=== PATIENT | female | born 1945 | race Caucasian/White ===

== ENCOUNTER 2018-12-03 10:31 | Emergency (ER) | payer OTHER ==
[~2018-12-03] VITALS: Ht 152.4 cm; Wt 62.6 kg
[~2018-12-03 10:31] MED LIST: AMBIEN10 MG PO; CIPRO500 MG PO; DICY20TA PO; FOSAMAX70 MG PO; LEVAQUIN750 MG PO; PROTONIX40 MG PO; PYRIDIUM DS200 MG PO; SYNTHROID137 MCG PO; VASOTEC10 MG NGT; ZANTAC300 MG PO
[2018-12-03] MEDS ORDERED: HYDROCHLOROTHIA25 MG (10:56)
== END 2018-12-03 13:41 | disposition home or self-care (01) ==
LOC: ER 10:31
DX: B34.9 Viral infection, unspecified (principal)

== ENCOUNTER 2019-03-26 16:52 | Emergency (ER) | payer OTHER ==
[~2019-03-26] VITALS: Ht 160 cm; Wt 63.5 kg
[~2019-03-26 16:52] MED LIST changes: +HYDROCHLOROTHIA25 MG
== END 2019-03-26 21:43 | disposition home or self-care (01) ==
LOC: ER 16:52
DX: M54.2 Cervicalgia (principal)

== ENCOUNTER → 2019-07-20 11:38 | Outpatient (CLI) | payer OTHER | END | disposition home or self-care (01) | LOC: LAB 11:38 | DX: B99.8 Other infectious disease (principal); N39.0 Urinary tract infection, site not specified ==

== ENCOUNTER 2019-07-21 13:15 | Emergency (ER) | payer OTHER ==
[~2019-07-21] VITALS: Ht 152.4 cm; Wt 63.5 kg
== END 2019-07-21 16:40 | disposition home or self-care (01) ==
LOC: ER 13:15
DX: N39.0 Urinary tract infection, site not specified (principal)

== ENCOUNTER 2020-09-17 18:05 | Emergency (ER) | payer OTHER ==
[~2020-09-17] VITALS: Ht 152.4 cm; Wt 64.4 kg
[2020-09-17] MEDS ORDERED: VASOTEC20 M1 (18:22)
[2020-09-17] MEDS ORDERED: SYNTHROID125 MCG PO (18:22)
[2020-09-17] MEDS ORDERED: OSTERA TABLET1 EACH PO (18:23)
== END 2020-09-17 21:17 | disposition home or self-care (01) ==
LOC: ER 18:05
DX: R51.9 Headache, unspecified (principal)

== ENCOUNTER 2020-10-21 13:33 | Emergency (ER) | payer OTHER ==
[~2020-10-21] VITALS: Ht 152.4 cm; Wt 63.5 kg
[~2020-10-21 13:33] MED LIST changes: +OSTERA TABLET1 EACH PO; +SYNTHROID125 MCG PO; +VASOTEC20 M1
[2020-10-31] MEDS ORDERED: NORFLEX100MG PO (16:28)
== END 2020-10-21 17:33 | disposition home or self-care (01) ==
LOC: ER 13:33
DX: M54.2 Cervicalgia (principal); J06.9 Acute upper respiratory infection, unspecified; B34.9 Viral infection, unspecified; R51.9 Headache, unspecified; Z03.818 Encounter for observation for suspected exposure to other biological agents ruled out

== ENCOUNTER 2020-10-27 09:20 | Emergency (ER) | payer OTHER ==
[~2020-10-27] VITALS: Ht 144.8 cm; Wt 60.3 kg
[2020-10-31] MEDS ORDERED: NORFLEX100MG PO (16:28)
== END 2020-10-27 16:51 | disposition home or self-care (01) ==
LOC: ER 09:20
DX: U07.1 COVID-19 (principal); B34.9 Viral infection, unspecified

== ENCOUNTER → 2020-10-31 | Emergency (ER) | payer OTHER ==
[~2020-10-31] VITALS: Ht 152.4 cm; Wt 63.5 kg
[~2020-10-31] MED LIST changes: +NORFLEX100MG PO
== END | disposition home or self-care (01) ==
LOC: ER 12:08
DX: G44.89 Other headache syndrome (principal); Z20.828 Contact with and (suspected) exposure to other viral communicable diseases

== ENCOUNTER 2021-01-11 10:44 | Emergency (ER) | payer OTHER ==
[~2021-01-11] VITALS: Ht 152.4 cm; Wt 63.5 kg
== END 2021-01-11 17:11 | disposition left against medical advice (07) ==
LOC: ER 10:44
DX: K29.60 Other gastritis without bleeding (principal); Z20.822 Contact with and (suspected) exposure to COVID-19; R10.13 Epigastric pain

== ENCOUNTER 2021-01-16 12:26 | Emergency (ER) | payer OTHER ==
[~2021-01-16] VITALS: Ht 152.4 cm; Wt 63.5 kg
== END 2021-01-16 18:34 | disposition home or self-care (01) ==
LOC: ER 12:26
DX: R10.32 Left lower quadrant pain (principal); Z03.818 Encounter for observation for suspected exposure to other biological agents ruled out

== ENCOUNTER 2021-02-12 23:59 | Emergency (ER) | payer OTHER ==
[~2021-02-12] VITALS: Ht 152.4 cm; Wt 63.5 kg
[2021-02-13] MEDS ORDERED: HYDROCHLOROTHIA25 MG (00:24)
[2021-02-13] MEDS ORDERED: LEVSIN/SL0.125 MG SL (07:28)
[2021-02-13] MEDS ORDERED: CIPRO500 MG PO (07:28)
[2021-02-25] MEDS ORDERED: NAPROXEN375 MG PO (23:10)
[2021-02-25] MEDS ORDERED: LEVSIN0.125 MG PO (23:10)
[2021-02-25] MEDS ORDERED: PEPCID AC20 MG PO (23:10)
[2021-02-25] MEDS ORDERED: ACETAMINOPHEN650 M2 PO (23:24)
[2021-02-25] MEDS ORDERED: ONDANSETRON HCL4 MG PO (23:26)
== END 2021-02-13 07:46 | disposition home or self-care (01) ==
LOC: ER 23:59
DX: R10.32 Left lower quadrant pain (principal)

== ENCOUNTER 2021-04-21 11:16 | Emergency (ER) | payer OTHER ==
[~2021-04-21] VITALS: Ht 152.4 cm; Wt 63.5 kg
[~2021-04-21 11:16] MED LIST changes: +ACETAMINOPHEN650 M2 PO; +LEVSIN/SL0.125 MG SL; +LEVSIN0.125 MG PO; +NAPROXEN375 MG PO; +ONDANSETRON HCL4 MG PO; +PEPCID AC20 MG PO
[2021-04-21] MEDS ORDERED: ATORVASTATIN CA20 MG (11:36)
[2021-04-21] MEDS ORDERED: DICLOFENAC POTA50 MG PO (15:35)
[2021-04-21] MEDS ORDERED: ORPHENADRINE C100 MG PO (15:35)
== END 2021-04-21 20:30 | disposition home or self-care (01) ==
LOC: ER 11:16
DX: M62.830 Muscle spasm of back (principal); M54.2 Cervicalgia; M62.838 Other muscle spasm

== ENCOUNTER 2021-06-18 07:28 | Emergency (ER) | payer OTHER ==
[~2021-06-18] VITALS: Ht 152.4 cm; Wt 63.5 kg
[~2021-06-18 07:28] MED LIST changes: +ATORVASTATIN CA20 MG; +DICLOFENAC POTA50 MG PO; +ORPHENADRINE C100 MG PO
== END 2021-06-18 19:54 | disposition home or self-care (01) ==
LOC: ER 07:28 → CPU-OBS 07:50 → ER 19:54
DX: R07.89 Other chest pain (principal)

== ENCOUNTER 2021-10-11 15:56 | Emergency (ER) | payer OTHER ==
[~2021-10-11] VITALS: Ht 152.4 cm; Wt 63.5 kg
[2021-10-11] MEDS ORDERED: HYDROCHLOROTH12.5 MG (17:54)
== END 2021-10-11 19:22 | disposition home or self-care (01) ==
LOC: ER 15:56
DX: I16.0 Hypertensive urgency (principal); I10 Essential (primary) hypertension; G44.89 Other headache syndrome

== ENCOUNTER 2021-10-12 11:07 | Emergency (ER) | payer OTHER ==
[~2021-10-12] VITALS: Ht 152.4 cm; Wt 63.5 kg
[~2021-10-12 11:07] MED LIST changes: +HYDROCHLOROTH12.5 MG
== END 2021-10-12 16:25 | disposition home or self-care (01) ==
LOC: ER 11:07
DX: I16.0 Hypertensive urgency (principal); I10 Essential (primary) hypertension; R00.1 Bradycardia, unspecified

== ENCOUNTER 2021-11-27 12:29 | Emergency (ER) | payer OTHER ==
[~2021-11-27] VITALS: Ht 152.4 cm; Wt 63.5 kg
== END 2021-11-27 14:55 | disposition home or self-care (01) ==
LOC: ER 12:29
DX: U07.1 COVID-19 (principal); B34.9 Viral infection, unspecified; R09.81 Nasal congestion; R07.0 Pain in throat

== ENCOUNTER 2021-12-18 16:52 | Emergency (ER) | payer OTHER ==
[~2021-12-18] VITALS: Ht 152.4 cm; Wt 63.5 kg
[2021-12-18] MEDS ORDERED: DOLOGEN 325-11 EACH PO (22:04)
== END 2021-12-18 22:06 | disposition home or self-care (01) ==
LOC: ER 16:52
DX: G44.89 Other headache syndrome (principal); E87.6 Hypokalemia

== ENCOUNTER 2021-12-25 11:32 | Emergency (ER) | payer OTHER ==
[~2021-12-25] VITALS: Ht 160 cm; Wt 59.0 kg
[~2021-12-25 11:32] MED LIST changes: +DOLOGEN 325-11 EACH PO
[2021-12-25] MEDS ORDERED: NORFLEX100MG PO (16:11)
[2021-12-25] MEDS ORDERED: KETO10TA2 PO (16:11)
== END 2021-12-25 16:44 | disposition home or self-care (01) ==
LOC: ER 11:32
DX: M54.2 Cervicalgia (principal); R51.9 Headache, unspecified; I10 Essential (primary) hypertension; Z03.818 Encounter for observation for suspected exposure to other biological agents ruled out

== ENCOUNTER 2022-01-07 02:31 | Emergency (ER) | payer OTHER ==
[~2022-01-07] VITALS: Ht 152.4 cm; Wt 63.5 kg
[~2022-01-07 02:31] MED LIST changes: +KETO10TA2 PO
== END 2022-01-07 11:45 | disposition home or self-care (01) ==
LOC: ER 02:31
DX: R10.84 Generalized abdominal pain (principal); R51.9 Headache, unspecified

== ENCOUNTER 2022-03-02 12:14 | Emergency (ER) | payer OTHER ==
[~2022-03-02] VITALS: Ht 152.4 cm; Wt 63.5 kg
[2022-03-02] MEDS ORDERED: PYRIDIUM200 MG PO (16:08)
[2022-03-02] MEDS ORDERED: MACRODANTIN100 M1 PO (16:08)
== END 2022-03-02 17:09 | disposition home or self-care (01) ==
LOC: ER 12:14
DX: R31.9 Hematuria, unspecified (principal)

== ENCOUNTER 2022-05-04 12:52 | Emergency (ER) | payer OTHER ==
[~2022-05-04] VITALS: Ht 152.4 cm; Wt 63.5 kg
[~2022-05-04 12:52] MED LIST changes: +MACRODANTIN100 M1 PO; +PYRIDIUM200 MG PO
[2022-05-04] MEDS ORDERED: PEPCID AC20 MG PO (16:42)
[2022-05-04] MEDS ORDERED: PROTONIX40 MG PO (16:42)
== END 2022-05-04 16:47 ==
LOC: ER 12:52
DX: K21.9 Gastro-esophageal reflux disease without esophagitis (principal); K29.70 Gastritis, unspecified, without bleeding; I10 Essential (primary) hypertension; Z88.2 Allergy status to sulfonamides

== ENCOUNTER 2022-05-20 11:47 | Emergency (ER) | payer OTHER ==
[~2022-05-20] VITALS: Ht 152.4 cm; Wt 63.5 kg
[2022-05-20] MEDS ORDERED: DICLOFENAC SODI75 MG PO (16:32)
== END 2022-05-20 16:58 | disposition home or self-care (01) ==
LOC: ER 11:47
DX: S80.02XA Contusion of left knee, initial encounter (principal); S90.32XA Contusion of left foot, initial encounter; S90.02XA Contusion of left ankle, initial encounter; W19.XXXA Unspecified fall, initial encounter; Y93.89 Activity, other specified; Y92.89 Other specified places as the place of occurrence of the external cause; I10 Essential (primary) hypertension; E03.9 Hypothyroidism, unspecified; Z88.2 Allergy status to sulfonamides

== ENCOUNTER 2023-01-05 12:19 | Emergency (ER) | payer OTHER ==
[~2023-01-05] VITALS: Ht 152.4 cm; Wt 63.5 kg
[~2023-01-05 12:19] MED LIST changes: +DICLOFENAC SODI75 MG PO
[2023-01-05] MEDS ORDERED: KETO10TA2 PO (15:57)
[2023-01-05] MEDS ORDERED: CIPRO500 MG PO (15:57)
== END 2023-01-05 16:15 | disposition home or self-care (01) ==
LOC: ER 12:19
DX: N39.0 Urinary tract infection, site not specified (principal); Z88.2 Allergy status to sulfonamides

== ENCOUNTER 2023-01-08 11:03 | Emergency (ER) | payer OTHER ==
[~2023-01-08] VITALS: Ht 152.4 cm; Wt 63.5 kg
== END 2023-01-08 16:07 ==
LOC: ER 11:03
DX: K29.70 Gastritis, unspecified, without bleeding (principal); K76.0 Fatty (change of) liver, not elsewhere classified; Z88.2 Allergy status to sulfonamides

== ENCOUNTER 2023-01-21 12:25 | Emergency (ER) | payer OTHER ==
[~2023-01-21] VITALS: Ht 152.4 cm; Wt 63.5 kg
== END 2023-01-21 14:52 | disposition home or self-care (01) ==
LOC: ER 12:25
DX: R51.9 Headache, unspecified (principal); I10 Essential (primary) hypertension; Z98.890 Other specified postprocedural states; Z88.2 Allergy status to sulfonamides; Z20.822 Contact with and (suspected) exposure to COVID-19

== ENCOUNTER 2023-04-21 10:51 | Emergency (ER) | payer OTHER ==
[~2023-04-21] VITALS: Ht 152.4 cm; Wt 65.3 kg
== END 2023-04-21 16:38 | disposition home or self-care (01) ==
LOC: ER 10:51
DX: R10.32 Left lower quadrant pain (principal); Z88.2 Allergy status to sulfonamides; E78.00 Pure hypercholesterolemia, unspecified; I10 Essential (primary) hypertension

== ENCOUNTER 2023-06-09 15:45 | Emergency (ER) | payer OTHER ==
[~2023-06-09] VITALS: Ht 152.4 cm; Wt 63.5 kg
[2023-06-09] MEDS ORDERED: AMOX1TAB5 PO (18:38)
[2023-06-09] MEDS ORDERED: FLONASE16 GM IH (18:38)
[2023-06-09] MEDS ORDERED: ZYRTEC10 M3 PO (18:38)
== END 2023-06-09 18:54 | disposition home or self-care (01) ==
LOC: ER 15:45
DX: R51.9 Headache, unspecified (principal); J32.9 Chronic sinusitis, unspecified; Z86.79 Personal history of other diseases of the circulatory system; Z88.2 Allergy status to sulfonamides; I10 Essential (primary) hypertension; E03.9 Hypothyroidism, unspecified

== ENCOUNTER 2023-06-14 11:36 | Emergency (ER) | payer OTHER ==
[~2023-06-14] VITALS: Ht 152.4 cm; Wt 63.5 kg
[~2023-06-14 11:36] MED LIST changes: +AMOX1TAB5 PO; +FLONASE16 GM IH; +ZYRTEC10 M3 PO
== END 2023-06-14 17:49 | disposition home or self-care (01) ==
LOC: ER 11:36
DX: G43.909 Migraine, unspecified, not intractable, without status migrainosus (principal); Z88.2 Allergy status to sulfonamides

== ENCOUNTER 2023-10-24 11:38 | Emergency (ER) | payer OTHER ==
[~2023-10-24] VITALS: Ht 152.4 cm; Wt 63.5 kg
[2023-10-24 13:58] LABS: HEMATOCRIT 36.1 % (36.0-45.00); HEMOGLOBIN 12.5 g/dL (12.0-15.00); MEAN CELL VOLUME 86.7 fL (80.00-100.00); MEAN CORPUSCULAR HEMOGLOBIN 30.1 pg (27.00-32.0); MEAN CORPUSCULAR HGB CONC 34.7 g/dl (32.0-36.0); PLATELET COUNT 226 K/uL (150-450); RED BLOOD COUNT 4.16 M/uL (4.00-6.00); RED CELL DISTRIBUTION WIDTH 14.4 % (11.5-14.5)
[2023-10-24 14:15] LABS: URINE APPEARANCE Clear; URINE BILIRRUBIN Negative (NEGATIVE); URINE BLOOD Negative; URINE COLOR Yellow; URINE GLUCOSE Negative (NEGATIVE); URINE LEUKOCYTE Negative; URINE NITRATE Negative; URINE PROTEIN Negative (NEGATIVE); URINE UROBILINOGEN 0.2 E.U./dl
[2023-10-24 14:16] LABS: CALCIUM 8.7 mg/dL (8.5-10.1); CREATININE SERUM 0.72 mg/dL (0.55-1.02); GFR 78.75; POTASSIUM 3.55 mEq/L (3.5-5.1)
[2023-10-24 14:19] LABS: URINE BACTERIA 159.8 uL (0.0-1933); URINE RBC 3.7 uL (0.0-20.8)
[2023-10-24 14:22] LABS: URINE WBC 1.3 uL (0.0-23.2)
[2023-10-24 14:31] LABS: INR 1.02; PARTIAL THROMBOPLASTIN TIME 26.5 SECONDS (22.0-34.0); PROTHROMBIN TIME 10.7 SECONDS (9.0-11.5)
[2023-10-24] MEDS ORDERED: PEPCID AC20 MG PO (16:01)
[2023-10-24] MEDS ORDERED: DICY20TA PO (16:01)
[2023-10-24] MEDS ORDERED: INTESTINEX680 M1 PO (16:01)
[2023-10-24] MEDS ORDERED: CIPRO500 MG PO (16:01)
== END 2023-10-24 16:35 | disposition home or self-care (01) ==
LOC: ER 11:38
PROVIDERS: General Practice
DX: R10.32 Left lower quadrant pain (principal); I10 Essential (primary) hypertension; Z88.2 Allergy status to sulfonamides
CPT/HCPCS: 36415; 74177; 96365; 96366; 99284; J1885; J3490; Q9965

== ENCOUNTER 2024-02-01 16:38 | Emergency (ER) | payer OTHER ==
[~2024-02-01] VITALS: Ht 152.4 cm; Wt 63.5 kg
[~2024-02-01 16:38] MED LIST changes: +INTESTINEX680 M1 PO
[2024-02-01] MEDS ORDERED: CETIRIZINE HCL 5 MG/5 ML ML PO ONE (17:30)
[2024-02-01] MEDS ORDERED: ZYRTEC10 MG PO (18:48)
== END 2024-02-01 19:28 | disposition home or self-care (01) ==
LOC: ER 16:39
DX: R09.81 Nasal congestion (principal); I10 Essential (primary) hypertension; Z88.2 Allergy status to sulfonamides; Z20.822 Contact with and (suspected) exposure to COVID-19

== ENCOUNTER 2025-03-31 10:10 | Emergency (ER) | payer OTHER ==
[~2025-03-31] VITALS: Ht 152.4 cm; Wt 63.5 kg
[~2025-03-31 10:10] MED LIST changes: +ZYRTEC10 MG PO
[2025-03-31] MEDS ORDERED: LOSARTAN POTAS100 MG PO (10:17)
[2025-03-31] MEDS ORDERED: NIFE60TA3 PO (10:17)
[2025-03-31] MEDS ORDERED: BARIUM SULFATE 450 ML ORAL.SUSP PO ONE (11:06)
[2025-03-31 11:36] LABS: CALCIUM 8.8 mg/dL (8.5-10.1); CREATININE SERUM 0.71 mg/dL (0.55-1.02); GFR 79.82; HEMATOCRIT 36.6 % (36.0-45.00); HEMOGLOBIN 12.9 g/dL (12.0-15.00); MEAN CORPUSCULAR HGB CONC 35.3 g/dl (32.0-36.0); PLATELET COUNT 194 K/uL (150-450); RED BLOOD COUNT 4.16 M/uL (4.00-6.00); RED CELL DISTRIBUTION WIDTH 14.2 % (11.5-14.5)
[2025-03-31 15:43] LABS: PH,URINE 7.5 (5.0-8.0); URINE APPEARANCE Clear; URINE BILIRRUBIN Negative (NEGATIVE); URINE BLOOD Negative; URINE COLOR Yellow; URINE GLUCOSE Negative (NEGATIVE); URINE KETONE Negative (NEGATIVE); URINE LEUKOCYTE Negative; URINE NITRATE Negative; URINE PROTEIN Negative (NEGATIVE); URINE UROBILINOGEN 0.2 E.U./dl
[2025-03-31 15:49] LABS: URINE BACTERIA 331.5 uL (0.0-1933); URINE WBC 8.2 uL (0.0-23.2)
[2025-03-31 15:54] LABS: URINE CAST 0.14 uL (0.0-1.40)
[2025-03-31] MEDS ORDERED: NORFLEX100MG PO (16:30)
[2025-03-31] MEDS ORDERED: KETOROLAC TROMETHAMINE 60 MG VIAL IM ONE ×2 (16:30→16:45)
== END 2025-03-31 17:26 | disposition home or self-care (01) ==
LOC: ER 10:10
PROVIDERS: Emergency Medicine
DX: R10.9 Unspecified abdominal pain (principal); K57.30 Diverticulosis of large intestine without perforation or abscess without bleeding; Z88.2 Allergy status to sulfonamides; E03.8 Other specified hypothyroidism; I10 Essential (primary) hypertension; M62.830 Muscle spasm of back
CPT/HCPCS: 36415; 74177; 96372; 99284; J1885; Q9965